=== PATIENT | male | born 1945 | race Caucasian/White ===

== ENCOUNTER 2022-01-11 06:48 | Day surgery (SDC) | payer BC ==
[~2022-01-11 06:48] MED LIST: Lactated Ringers 1,000 ML IV SCH; Lidocaine 1%/Sod Bicarbonate in NS 8.4% 1 ML Syringe IDERM PRN; Sodium Chloride 0.9% 10 ML Syringe FLUSH PRN; Sodium Chloride 0.9% 10 ML Syringe FLUSH SCH
[2022-01-11] MEDS ORDERED: Propofol 200 MG/20 ML SDV ONE (07:26)
[2022-01-11] MEDS ORDERED: Diatrizoate Meglumine/Diatrizoate Sodium 37% 120 ML Bottle PO ONE (10:07)
[2022-01-11] MEDS ORDERED: Iopamidol 612 MG/ML 100 ML Bottle IVPUSH ONE (10:07)
[2022-01-11] MEDS ORDERED: Iopamidol 612 MG/ML 50 ML SDV IVPUSH ONE (10:07)
== END 2022-01-11 10:30 | disposition home or self-care (01) ==
LOC: JD.SDS 06:48
PROVIDERS: ATTEND Surgery
DX: Z12.11 Encounter for screening for malignant neoplasm of colon (principal); D12.2 Benign neoplasm of ascending colon; D12.3 Benign neoplasm of transverse colon; K57.30 Diverticulosis of large intestine without perforation or abscess without bleeding; K64.8 Other hemorrhoids; N40.0 Benign prostatic hyperplasia without lower urinary tract symptoms; K21.9 Gastro-esophageal reflux disease without esophagitis; I10 Essential (primary) hypertension; E78.5 Hyperlipidemia, unspecified; E03.9 Hypothyroidism, unspecified; Z88.8 Allergy status to other drugs, medicaments and biological substances; Z87.891 Personal history of nicotine dependence; Z79.899 Other long term (current) drug therapy; Z98.890 Other specified postprocedural states
CPT/HCPCS: 45380; 45381; 45385; 71260; 74177; J2704; J7120; Q9963; Q9967; 00812; 99100

== ENCOUNTER 2023-05-29 07:31 | Day surgery (SDC) | payer BC, MEDICARE ==
[~2023-05-29 07:31] MED LIST changes: -Lidocaine 1%/Sod Bicarbonate in NS 8.4% 1 ML Syringe IDERM PRN; +Morphine 8 MG, EPINEPHrine 0.3 MG, Cefuroxime 750 MG, Ketorolac 30 MG, Sodium Chloride ... PRN
[2023-05-29] MEDS ORDERED: Ondansetron 4 MG/2 ML SDV IVPUSH PRN (07:45)
[2023-05-29] MEDS ORDERED: HYDROmorphone 0.5 MG/0.5 ML Syringe IVPUSH PRN (07:45)
[2023-05-29] MEDS ORDERED: fentaNYL 100 MCG/2 ML SDV IVPUSH PRN (07:45)
[2023-05-29] MEDS ORDERED: Vancomycin 1 GM SDV ONE (07:54)
[2023-05-29] MEDS ORDERED: Tranexamic Acid 1,000 MG/10 ML Vial ONE (07:54)
[2023-05-29] MEDS ORDERED: fentaNYL 100 MCG/2 ML SDV ONE (08:16)
[2023-05-29] MEDS ORDERED: Midazolam 1 MG/ML 2 ML SDV ONE (08:16)
[2023-05-29] MEDS ORDERED: Lidocaine 1% 2 ML ONE (08:16)
[2023-05-29] MEDS ORDERED: ceFAZolin 2 GM Vial ONE (08:17)
[2023-05-29] MEDS ORDERED: Propofol 200 MG/20 ML SDV ONE ×2 (08:17→10:16)
[2023-05-29] MEDS ORDERED: ePHEDrine 50 MG/ML SDV ONE (09:29)
[2023-05-29] MEDS ORDERED: Lactated Ringers 1,000 ML ONE (10:38)
[2023-05-29] MEDS ORDERED: Acetaminophen/HYDROcodone 325-5 MG Tab PO PRN (11:30)
[2023-05-29] MEDS ORDERED: Cyclobenzaprine 10 MG Tab PO SCH (13:53)
== END 2023-05-29 15:02 | disposition home or self-care (01) ==
LOC: JD.SDS 07:31
PROVIDERS: ATTEND Orthopaedic Surgery
DX: M16.12 Unilateral primary osteoarthritis, left hip (principal); I10 Essential (primary) hypertension; K21.9 Gastro-esophageal reflux disease without esophagitis; E78.00 Pure hypercholesterolemia, unspecified; Z87.891 Personal history of nicotine dependence; Z79.82 Long term (current) use of aspirin; Z79.899 Other long term (current) drug therapy; Z88.8 Allergy status to other drugs, medicaments and biological substances
CPT/HCPCS: 01214; 36415; 73501-26-LT; 73501-LT; 86850; 86900; 86901; 97110-GP; 97116-GP; 97161-GP; 99100; A9270-GY; C1713; C1776; J0171; J0690; J0697; J1885; J2250; J2270; J2704; J3010; J3370; J3490; J7030; J7120

== ENCOUNTER 2024-12-31 07:05 | Day surgery (SDC) | payer BC ==
[~2024-12-31 07:05] MED LIST changes: -Lactated Ringers 1,000 ML IV SCH; -Morphine 8 MG, EPINEPHrine 0.3 MG, Cefuroxime 750 MG, Ketorolac 30 MG, Sodium Chloride ... PRN
[2024-12-31] MEDS: Lactated Ringers 1,000 ML IV SCH (07:34)
[2024-12-31] MEDS ORDERED: propofoL 500 MG/50 ML 50 ML ONE (07:45)
== END 2024-12-31 09:05 | disposition home or self-care (01) ==
LOC: JD.SDS 07:05
PROVIDERS: ATTEND Surgery
DX: Z12.11 Encounter for screening for malignant neoplasm of colon (principal); Z90.49 Acquired absence of other specified parts of digestive tract; K21.9 Gastro-esophageal reflux disease without esophagitis; E78.5 Hyperlipidemia, unspecified; F17.200 Nicotine dependence, unspecified, uncomplicated; Z79.899 Other long term (current) drug therapy; Z88.8 Allergy status to other drugs, medicaments and biological substances
CPT/HCPCS: 45378; J2704; J7120; 00812; 99100